=== PATIENT | female | born 1995 | race Hispanic/Latino ===

== ENCOUNTER 2017-07-01 23:36 | Emergency (ER) | payer OTHER ==
--- NOTE | 2017-07-02 08:42 | RAD ---
RADIOGRAPH RIGHT ANKLE 3 VIEWS: Date: 07/02/17 HISTORY: 22-year-old female status post acute trauma to right ankle. FINDINGS: Ankle mortise is symmetrical. Talar dome is maintained. There is no fracture or any other osseous ab normality. Mild lateral soft tissue swelling. IMPRESSION: 1. Acute, traumatic, mild lateral soft tissue swelling. 2. Otherwise negative. POS: [facility]
== END 2017-07-02 01:28 | disposition home or self-care (01) ==
LOC: ERS 23:36
DX: S96.911A Strain of unspecified muscle and tendon at ankle and foot level, right foot, initial encounter (principal); K76.0 Fatty (change of) liver, not elsewhere classified; X50.1XXA Overexertion from prolonged static or awkward postures, initial encounter; Y93.01 Activity, walking, marching and hiking